=== PATIENT | male | born 1960 | race Caucasian/White ===

== ENCOUNTER 2022-01-04 11:24 | Outpatient (CLI) | payer BC ==
[2022-01-04 12:42] LABS: #Eosinphils 0.1 10x3/uL (0.0-0.5); #Monocytes 0.4 10x3/uL (0.0-1.1); #Neutrophils 3.3 10x3/uL (1.5-8.4); %Basophils 0.6 % (0.0-2.0); %Eosinophils 1.6 % (0.0-6.0); %Lymphocytes 24.9 % (18.0-47.0); %Monocytes 8.3 % (0.0-10.0); %Neutrophils 64.2 % (40.0-75.0); Hemoglobin 11.9 g/dL (13.5-17.5); Mean Corpuscular HGB CONC 30.2 g/dL (32.0-36.0); Mean Corpuscular Hemoglobin 21.9 pg (27.0-33.0); Mean Corpuscular Volume 72.6 fl (81.2-95.1); Platelet Count 155 10x3/uL (150-450); RBC Distribution Width 18.6 % (11.5-14.5); Red Blood Cell (RBC) Count 5.43 10x6/uL (4.32-5.72); White Blood Cell (WBC) Count 5.2 10x3/uL (3.5-10.5)
[2022-01-04 12:50] LABS: INR-International Normal Ratio 1.1; Prothrombin Time 11.5 sec (9.5-12.1)
[2022-01-04 12:55] LABS: Anion Gap 12 mmol/L (10-20); BUN (Urea Nitrogen) 14 mg/dL (8.4-25.7); Calc. Creatinine Clearance 0 mL/min (70-130); Carbon Dioxide 26 mmol/L (23-31); Chloride 107 mmol/L (98-107); Estimated GFR 79; Glucose 127 mg/dL (80-115); Potassium 4.2 mmol/L (3.5-5.1); Sodium 141 mmol/L (136-145)
== END 2022-01-04 11:25 | disposition home or self-care (01) ==
LOC: LABBT 11:24
PROVIDERS: ATTEND Orthopaedic Surgery
DX: Z01.818 Encounter for other preprocedural examination (principal); M17.11 Unilateral primary osteoarthritis, right knee; Z20.822 Contact with and (suspected) exposure to COVID-19
CPT/HCPCS: 80048; 85025; 85610; 87081; 87811; 93005; 93010

== ENCOUNTER 2022-01-04 11:45 | Inpatient (IN) | payer BC ==
[2022-01-09] MEDS ORDERED: Tranexamic Acid 1,000 MG/10 ML VIAL ONE (07:18)
[2022-01-09] MEDS ORDERED: Sodium Chloride 0.9% 100 ML ONE ×3 (07:18→17:25)
[2022-01-09] MEDS ORDERED: Vancomycin (BATCH) 1.5 GRAM/300 ML BAG ONE (07:19)
[2022-01-09] MEDS ORDERED: Fentanyl 100 MCG/2 ML VIAL ONE ×2 (08:46→12:38)
[2022-01-09] MEDS ORDERED: Midazolam HCl 2 mg/2 ml Vial ONE ×2 (08:46→09:51)
[2022-01-09] MEDS ORDERED: Bupivacaine HCl 0.5%/Epinephrine 1:200,000/PF 30 ml Vial ONE (09:09)
[2022-01-09] MEDS ORDERED: HYDROmorphone 2 MG/ML VIAL ONE (09:51)
[2022-01-09] MEDS ORDERED: fentaNYL Citrate/PF 100 MCG/2 ML SYRINGE ONE (09:51)
[2022-01-09] MEDS ORDERED: Famotidine/PF 20 mg/2ml Vial ONE (09:51)
[2022-01-09] MEDS ORDERED: Bupivacaine PF 0.5% 30 ML VIAL ONE (09:58)
[2022-01-09] MEDS ORDERED: CEFAZOLIN 2 GM VIAL ONE (09:58)
[2022-01-09] MEDS ORDERED: PROPOFOL 200 MG/20 ML VIAL ONE (10:08)
[2022-01-09] MEDS ORDERED: Lidocaine 1% PF 5 ML VIAL ONE (10:08)
[2022-01-09] MEDS ORDERED: Ondansetron PF 4 MG/2 ML Vial ONE (10:08)
[2022-01-09] MEDS ORDERED: Dexamethasone 20 MG/5 ML VIAL ONE (10:08)
[2022-01-09] MEDS ORDERED: PHENYLEPHRINE-NS 100 MCG/ML 10 ML SYRINGE ONE (10:08)
[2022-01-09] MEDS ORDERED: Glycopyrrolate 0.2 MG/ML 5 ML SYRINGE ONE (10:08)
[2022-01-09] MEDS ORDERED: Fentanyl 100 MCG/2 ML VIAL SLOW IVP PRN (11:43)
[2022-01-09] MEDS ORDERED: Zolpidem Tartrate 5 MG TAB PO PRN ×2 (11:45→12:26)
[2022-01-09] MEDS ORDERED: traMADol HCl 50 MG TAB PO PRN ×2 (11:45)
[2022-01-09] MEDS ORDERED: Promethazine HCl 25 MG/ML VIAL IM PRN ×3 (11:45→12:26)
[2022-01-09] MEDS ORDERED: Ondansetron PF 4 MG/2 ML Vial IVP PRN ×2 (11:45→12:26)
[2022-01-09] MEDS ORDERED: Ropivacaine 0.2% 550 ML 550 ML NERVE BLCK SCH (11:45)
[2022-01-09] MEDS ORDERED: HYDROcodone/Acetaminophen 10/325 mg Tablet PO PRN (11:45)
[2022-01-09] MEDS ORDERED: Promethazine HCl 25 MG/ML VIAL IVPB PRN (12:20)
[2022-01-09] MEDS ORDERED: Ondansetron HCl/PF 4 MG/2 ML Vial IVP PRN (12:20)
[2022-01-09] MEDS ORDERED: Meperidine HCl/PF 25 MG/ML VIAL SLOW IVP PRN (12:20)
[2022-01-09] MEDS ORDERED: HYDROmorphone 2 MG/ML VIAL SLOW IVP PRN (12:20)
[2022-01-09] MEDS ORDERED: ceFAZolin 2 GM/Dextrose 50 ML 2 GM in Premix Bag 1 BAG IVPB SCH (12:26)
[2022-01-09] MEDS ORDERED: Acetaminophen 325 MG TAB PO PRN (12:26)
[2022-01-09] MEDS ORDERED: diphenhydrAMINE 25 MG CAP PO PRN (12:26)
[2022-01-09 14:11] VITALS: BMI 38.1
[2022-01-09] MEDS: Ferrous Gluconate 324 MG TAB PO SCH ×2 (14:35→21:26)
[2022-01-09] MEDS: Multivitamin W/ Minerals 1 TAB PO SCH (14:35)
[2022-01-09] MEDS: Aspirin 81 mg Enteric Coated Tablet PO SCH ×2 (14:35→21:25)
[2022-01-09] MEDS: Senokot S 8.6-50 MG TAB PO SCH ×2 (14:36→21:26)
[2022-01-09] MEDS: Ketorolac Tromethamine 30 MG/ML VIAL IVP SCH ×3 (14:38→23:48)
[2022-01-09] MEDS: HYDROcodone/Acetaminophen 10/325 mg Tablet PO PRN ×3 (14:45→22:27)
[2022-01-09] MEDS: CEFAZOLIN 2 GM in Sodium Chloride 0.9% 100 ML IVPB SCH (17:48)
[2022-01-09] MEDS: Sodium Chloride 0.9% 1,000 ML IV SCH ×2 (18:43→22:16)
[2022-01-09] MEDS ORDERED: Vancomycin HCl 1.5 GM in Sodium Chloride 0.9% 250 ML 300 ML IVPB SCH (19:00)
[2022-01-09] MEDS ORDERED: Lisinopril 20 MG TAB PO SCH (21:00)
[2022-01-09] MEDS ORDERED: Allopurinol 300 MG TAB PO SCH (21:00)
[2022-01-10] MEDS: CEFAZOLIN 2 GM in Sodium Chloride 0.9% 100 ML IVPB SCH (02:49)
[2022-01-10 05:50] LABS: Mean Corpuscular HGB CONC 30.2 g/dL (32.0-36.0); Mean Corpuscular Hemoglobin 22.8 pg (27.0-31.0); Mean Corpuscular Volume 75.5 fL (78.0-98.0); Mean Platelet Volume 8.8 fL (7.4-10.4); Platelet Count 150 thou/uL (130-400); RBC Distribution Width 17.6 % (11.5-14.5); Red Blood Cell (RBC) Count 4.82 mill/uL (4.70-6.10); White Blood Cell (WBC) Count 9.6 thou/uL (4.8-10.8)
[2022-01-10] MEDS: Ketorolac Tromethamine 30 MG/ML VIAL IVP SCH (06:52)
[2022-01-10] MEDS: HYDROcodone/Acetaminophen 10/325 mg Tablet PO PRN ×2 (06:52→10:49)
[2022-01-10] MEDS ORDERED: glipiZIDE 5 MG TAB PO SCH (07:30)
[2022-01-10 08:16] VITALS: BP 113/69; TEMP 97.8
[2022-01-10] MEDS: Multivitamin W/ Minerals 1 TAB PO SCH (09:33)
[2022-01-10] MEDS: Aspirin 81 mg Enteric Coated Tablet PO SCH (09:33)
[2022-01-10] MEDS: Senokot S 8.6-50 MG TAB PO SCH (09:33)
[2022-01-10] MEDS: Ferrous Gluconate 324 MG TAB PO SCH (09:33)
[2022-01-16] MEDS ORDERED: TESTOSTERONE IM SCH (09:00)
== END 2022-01-10 10:55 | disposition home or self-care (01) | DRG 470 ==
LOC: SURG A 01-09 06:35
PROVIDERS: ADMIT Orthopaedic Surgery; ATTEND Orthopaedic Surgery
PROC: 0SRC0J9 Replacement of Right Knee Joint with Synthetic Substitute, Cemented, Open Approach (ICD-10-PCS; principal; 2022-01-09)
DX: M17.11 Unilateral primary osteoarthritis, right knee (principal); M25.761 Osteophyte, right knee; Z20.822 Contact with and (suspected) exposure to COVID-19; E78.5 Hyperlipidemia, unspecified; M10.9 Gout, unspecified; I10 Essential (primary) hypertension; Z83.3 Family history of diabetes mellitus; Z82.49 Family history of ischemic heart disease and other diseases of the circulatory system; Z82.5 Family history of asthma and other chronic lower respiratory diseases; Z79.899 Other long term (current) drug therapy; Z88.8 Allergy status to other drugs, medicaments and biological substances
CPT/HCPCS: 36415; 85027; A4306; C1713; C1776; J0690; J1100; J1170; J1885; J2250; J2405; J2704; J2795; J3010; J3370; J3490; J7050; S0020; S0028